=== PATIENT | male | born 1940 | race Caucasian/White ===

== ENCOUNTER 2019-02-24 12:05 | Emergency (ER) | payer MEDICARE, BC ==
[2019-02-24] MEDS ORDERED: Nitroglycerin 0.4 MG Tab.SL SL PRN (12:15)
[2019-02-24] MEDS ORDERED: Aspirin 81 MG Tab.Chew PO ONE (12:15)
[2019-02-24] MEDS ORDERED: Sodium Chloride 0.9% 10 ML Syringe FLUSH PRN (12:15)
[2019-02-24 13:12] LABS: ANION GAP 11.9; CHLORIDE,CL 101 mmol/L (101-111); SODIUM,NA 138 mmol/L (135-145)
[2019-02-24 13:28] VITALS: BP 126/61; PULSE 72
--- NOTE | 2019-02-24 13:45 | EDM.PDOC ---
Scribed by Neida Patricia 02/24/19 [id number] for Kylah Stephen MD ED HPI GENERAL MEDICAL PROBLEM - General Chief Complaint: Chest Pain Stated Complaint: PAIN IN THE CHEST Time Seen by Provider: 02/24/19 12:15 Source of Information: Reports: Patient, RN, RN Notes Reviewed History Limitations: Reports: Respiratory Distress - History of Present Illness INITIAL COMMENTS - FREE TEXT/NARRATIVE: Patient presents to ER by POV with c/o recurring chest pain that is progressively worsening for 1 to 2 weeks. Pt initially experienced chest pain with intense exertion. Over the past several days he has began to have pain with minimal activity such as walking less than 75 feet. Patient reports the chest pain is located midsternal, and radiates to the left arm. He admits to shortness of breath. Denies nausea, abdominal pain, increasing edema, palpitations, orthopnea, or syncope. The pt has been taking Nitroglycerin for the chest pain, and does have relief after the second dose. Pt has known CAD with stents in 2018. 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: Aspirin, Nitroglycerin - Related Data Allergies Allergy/AdvReac Type Severity Reaction Status Date / Time piperacillin sodium Allergy Severe Hypotension Verified 03/19/15 10:43 [From Zosyn] tazobactam sodium Allergy Severe Hypotension Verified 03/19/15 10:43 [From Zosyn] atorvastatin [From Lipitor] Allergy Muscle Verified 02/21/18 13:14 Aches Home Meds: Home Meds Aspirin [Adult Low Dose Aspirin EC] 81 mg PO DAILY 02/21/18 [History] Ezetimibe [Zetia] 10 mg PO DAILY 02/21/18 [History] Lisinopril/Hydrochlorothiazide [Lisinopril-HCTZ 10-12.5 MG] 10 - 12.5 mg PO BID 02/21/18 [History] Multivitamin-Min/Iron/FA/Vit K [Multi-Day Plus Minerals Tablet] 1 tab PO DAILY 02/21/18 [History] Ubidecarenone [Co Q-10] 10 mg PO DAILY 02/21/18 [History] Clopidogrel Bisulfate [Clopidogrel] 75 mg PO DAILY 04/06/18 [History] Nitroglycerin 0.4 mg SL ASDIRECTED PRN 04/06/18 [History] Pantoprazole Sodium 20 mg PO DAILY 04/06/18 [History] Simvastatin 20 mg PO DAILY 02/24/19 [History] Past Medical History HEENT History: Reports: Cataract Cardiovascular History: Reports: CAD, High Cholesterol, Hypertension, PTCA, Stents Other Cardiovascular History: CVA 2012 Genitourinary History: Reports: Prostate Disorder, Other (See Below) Other Genitourinary History: hx prostate cancer Musculoskeletal History: Reports: Osteoarthritis Other Musculoskeletal History: Hx of fracture to Rt ankle years ago. Neurological History: Reports: CVA Other Neuro History: CVA 12/14/12 Oncologic (Cancer) History: Reports: Prostate, Other (See Below) Other Oncologic History: Basal cell carcinoma and prostate cancer histories. Recovered from both. Dermatologic History: Reports: Other (See Below) Other Dermatologic History: hx basal cell carcinoma - Infectious Disease History Infectious Disease History: Reports: Chicken Pox, Measles - Past Surgical History HEENT Surgical History: Reports: Cataract Surgery Neurological Surgical History: Reports: None Musculoskeletal Surgical History: Reports: Knee Replacement, Other (See Below) Oncologic Surgical History: Reports: Other (See Below) Dermatological Surgical History: Reports: Skin Biopsy Social & Family History - Family History Cardiac: Reports: [place] Other Cardiac Family History: son at 49 from [place] Oncologic: Reports: Colon Other Oncologic Family History: mother of colon cancer - Living Situation & Occupation Living situation: Reports: , with Spouse Occupation: Retired ED ROS GENERAL - Review of Systems Review Of Systems: Comprehensive ROS is negative, except as noted in HPI. ED EXAM, GENERAL - Physical Exam Exam: See Below Exam Limited By: No Limitations General Appearance: Alert, WD/WN, No Apparent Distress, Obese Eye Exam: Bilateral Eye: Normal Inspection Nose: Normal Inspection, No Blood Throat/Mouth: Normal Inspection, Normal Lips, Normal Voice, No Airway Compromise Head: Atraumatic, Normocephalic Neck: Normal Inspection, Supple, Non-Tender, Full Range of Motion Respiratory/Chest: No Respiratory Distress, Lungs Clear, Normal Breath Sounds, No Accessory Muscle Use, Chest Non-Tender Cardiovascular: Normal Peripheral Pulses, Regular Rate, Rhythm, Other (+1 edema to knees B/L, chronic/stable per pt) GI/Abdominal: Normal Bowel Sounds, Soft, Non-Tender, No Distention. No: Guarding, Rigid, Rebound Back Exam: Normal Inspection Extremities: Normal Inspection, Normal Range of Motion, Non-Tender, Normal Capillary Refill, Pedal Edema Neurological: Alert, Oriented, CN II-XII Intact, Normal Cognition, No Motor/ Sensory Deficits Psychiatric: Normal Affect, Normal Mood Skin Exam: Warm, Dry, Intact, Normal Color, No Rash EKG INTERPRETATION EKG Date: 02/24/19 Time: 12:17 Rhythm: Other (sinus rhythm) Rate (Beats/Min): 65 [place]: Normal P-Wave: Present QRS: Normal ST-T: Normal QT: Normal Comparison: NA - No Prior EKG Course - Vital Signs Last Recorded V/S: Last Vital Signs Temp 97.4 F 02/24/19 12:19 Pulse 72 02/24/19 13:27 Resp 12 02/24/19 13:27 BP 126/61 02/24/19 13:27 Pulse Ox 94 L 02/24/19 13:27 - Orders/Labs/Meds Orders: Active Orders 24 hr Category Date Time Status EKG 12 Lead [EKG Documentation Completion] [RC] STAT Care 02/24/19 12:15 Active Peripheral IV Care [RC] . DIRECTED Care 02/24/19 12:15 Active Nitroglycerin [Nitrostat] Med 02/24/19 12:15 Active 0.4 mg SL Q5M PRN Sodium Chloride 0.9% [Saline Flush] Med 02/24/19 12:15 Active 10 ml FLUSH ASDIRECTED PRN Peripheral IV Insertion Adult [OM.PC] Stat Oth 02/24/19 12:15 Ordered Medication Orders Nitroglycerin (Nitrostat) 0.4 mg SL Q5M PRN PRN Reason: Chest Pain Sodium Chloride (Saline Flush) 10 ml FLUSH ASDIRECTED PRN PRN Reason: Keep Vein Open Last Admin: 02/24/19 12:27 Dose: 10 ml Labs: Laboratory Tests 02/24/19 02/24/19 02/24/19 Range/Units 12:23 12:23 12:23 WBC 7.1 (5.0-10.0) 10^3/uL RBC 4.98 (4.6-6.2) 10^6/uL Hgb 14.9 (14.0-18.0) g/dL Hct 44.1 (40.0-54.0) % MCV 88.6 (80-100) fL MCH 29.9 (27.0-34.0) pg MCHC 33.8 (33.0-35.0) g/dL Plt Count 211 (150-450) 10^3/uL Neut % (Auto) 65.5 (42.2-75.2) % Lymph % (Auto) 18.8 L (20.5-50.1) % Terrell % (Auto) 11.9 H (2-8) % Eos % (Auto) 2.8 (1.0-3.0) % Baso % (Auto) 1.0 (0.0-1.0) % PT 9.9 (9.0-12.0) SEC INR 1.0 (0.9-1.2) APTT 24.5 (22.0-34.0) SEC Sodium 138 (135-145) mmol/L Potassium 3.9 (3.6-5.0) mmol/L Chloride 101 (101-111) mmol/L Carbon Dioxide 29.0 (21.0-31.0) mmol/L Anion Gap 11.9 BUN 16 (7-18) mg/dL Creatinine 1.0 (0.6-1.3) mg/dL Est Cr Clr Drug Dosing 67.90 mL/min Estimated GFR (MDRD) > 60 BUN/Creatinine Ratio 16.00 Glucose 90 (74-105) mg/dL Calcium 8.8 (8.4-10.2) mg/dl Total Bilirubin 0.9 (0.2-1.0) mg/dL AST 18 (10-42) IU/L ALT 21 (10-60) IU/L Alkaline Phosphatase 61 (42-121) IU/L Troponin I < 0.02 (0.00-0.02) ng/ml B-Natriuretic Peptide 22 (0-100) pg/ml Total Protein 6.5 L (6.7-8.2) g/dl Albumin 3.8 (3.2-5.5) g/dl Globulin 2.7 Albumin/Globulin Ratio 1.41 Lipase 25 (22-51) U/L Meds: Medications Generic Name Dose Route Start Last Admin Trade Name Freq PRN Reason Stop Dose Admin Nitroglycerin 0.4 mg 02/24/19 12:15 Nitrostat SL Q5M PRN Chest Pain Sodium Chloride 10 ml 02/24/19 12:15 02/24/19 12:27 Saline Flush FLUSH 10 ml ASDIRECTED PRN Administration Keep Vein Open Discontinued Medications Generic Name Dose Route Start Last Admin Trade Name Freq PRN Reason Stop Dose Admin Aspirin 324 mg 02/24/19 12:15 02/24/19 12:27 Aspirin PO 02/24/19 12:16 324 mg ONETIME ONE Administration - Radiology Interpretation Free Text/Narrative:: [facility] Final Radiology Report Call: [phone] assistance Online chat: [email or web address] Name: PHILIP WILKINSON Age: 78Years M Date: 02/24/2019 SSN: -- : [id number] Study: XR CHEST 1 VIEW FRONTAL Requesting Physician: KYLAH STEPHEN Images: 1 Addl Studies: Provided Clinical History: Contrast: Contrast Medium: Contrast Amount: Contrast Method: CONFIDENTIALITY STATEMENT This report is intended only for use by the referring physician, and only in accordance with law. If you received this in error, call [phone]. Page 1 of 1 PROCEDURE INFORMATION: Exam: XR Chest, 1 View Exam date and time: 02/24/2019 12:29 PM Age: 78 years old Clinical history: Chest pain; Type not specified TECHNIQUE: Imaging protocol: XR of the chest Views: 1 view. COMPARISON: CR Chest 1V Frontal 03/18/2015 8:29 PM FINDINGS: Lungs: There is no focal pulmonary consolidation. Pleural space: There are no pleural effusions present. There is no evidence of pneumothorax. Heart/Mediastinum: The cardiac silhouette is within normal limits. Bones/joints: The visualized bones demonstrate no acute abnormalities. IMPRESSION: No acute cardiopulmonary disease. Thank you for allowing us to participate in the care of your patient. Dictated and Authenticated by: Bao Will MD 02/24/2019 1:21 PM Central Time ([place] & [place]) Departure - Departure Time of Disposition: 13:33 Disposition: DC/Tfer to Acute Hospital 02 Reason for Transfer *Q: Primary PCI Indicated Condition: Fair, Undetermined Clinical Impression: Unstable angina, History of coronary artery disease Forms: ED Department Discharge, Interfacility Transfer EMTALA - My Orders Last 24 Hours: My Active Orders 02/24/19 12:15 EKG 12 Lead [EKG Documentation Completion] [RC] STAT Peripheral IV Care [RC] . DIRECTED Nitroglycerin [Nitrostat] 0.4 mg SL Q5M PRN Sodium Chloride 0.9% [Saline Flush] 10 ml FLUSH ASDIRECTED PRN Peripheral IV Insertion Adult [OM.PC] Stat - Assessment/Plan Last 24 Hours: My Active Orders 02/24/19 12:15 EKG 12 Lead [EKG Documentation Completion] [RC] STAT Peripheral IV Care [RC] . DIRECTED Nitroglycerin [Nitrostat] 0.4 mg SL Q5M PRN Sodium Chloride 0.9% [Saline Flush] 10 ml FLUSH ASDIRECTED PRN Peripheral IV Insertion Adult [OM.PC] Stat I have read and agree with the documentation that has been completed regarding this visit. By signing this record, I attest that the documentation was completed in my physical presence and is an accurate record of the encounter.
== END 2019-02-24 14:15 ==
LOC: DL.ED 12:05
DX: I20.0 Unstable angina (principal); I10 Essential (primary) hypertension; E78.00 Pure hypercholesterolemia, unspecified; Z86.73 Personal history of transient ischemic attack (TIA), and cerebral infarction without residual deficits; Z95.5 Presence of coronary angioplasty implant and graft; Z88.1 Allergy status to other antibiotic agents; Z88.8 Allergy status to other drugs, medicaments and biological substances; Z79.82 Long term (current) use of aspirin; Z79.899 Other long term (current) drug therapy; Z79.02 Long term (current) use of antithrombotics/antiplatelets; Z85.46 Personal history of malignant neoplasm of prostate
CPT/HCPCS: 36415; 71045; 80053; 83690; 83880; 84484; 85025; 85610; 85730; 93005; 99285; A9270; 93010; 99284

== ENCOUNTER 2020-09-23 10:04 | Emergency (ER) | payer MEDICARE, BC ==
[2020-09-23] MEDS ORDERED: diphenhydrAMINE 50 MG/ML SDV IVPUSH ONE (10:08)
[2020-09-23] MEDS ORDERED: methylPREDNISolone Sodium Succinate 125 MG/2 ML SDV IVPUSH ONE (10:08)
[2020-09-23] MEDS ORDERED: Sodium Chloride 0.9% 1,000 ML IV ONE (10:08)
[2020-09-23] MEDS ORDERED: Famotidine 20 MG/2 ML SDV IVPUSH ONE (10:09)
--- NOTE | 2020-09-23 10:11 | EDM.PDOC ---
ED HPI GENERAL MEDICAL PROBLEM - General Stated Complaint: CT SCAN ALLERGIC REACTION Time Seen by Provider: 09/23/20 10:09 Source of Information: Reports: Patient, RN, RN Notes Reviewed, Other (educational advisor) History Limitations: Reports: No Limitations - History of Present Illness INITIAL COMMENTS - FREE TEXT/NARRATIVE: Dean is a 79 y/o male who presents to the ED following a CT with contrast at this facility with complaints of hives and pruritus. The patient received IV contrast approximately 15 minutes ago and began to experience itching to his bilateral hands and forearms. He states he received CT contrast in the past with no similar reaction. He denies palpitations, nausea, vomiting, shortness of breath, throat tightness, tongue swelling, or facial swelling. The patient was given no medications in radiology. - Related Data Allergies Allergy/AdvReac Type Severity Reaction Status Date / Time piperacillin sodium Allergy Severe Hypotension Verified 09/23/20 10:29 [From Zosyn] tazobactam sodium Allergy Severe Hypotension Verified 09/23/20 10:29 [From Zosyn] atorvastatin [From Lipitor] Allergy Muscle Verified 09/23/20 10:29 Aches iopamidol [From Isovue-M] Allergy Rash Verified 09/23/20 11:20 Contrast dye Allergy Hives Uncoded 09/23/20 11:58 Home Meds: Home Meds Aspirin [Adult Low Dose Aspirin EC] 81 mg PO DAILY 02/21/18 [History] Ezetimibe [Zetia] 10 mg PO DAILY 02/21/18 [History] Lisinopril/Hydrochlorothiazide [Lisinopril-HCTZ 10-12.5 MG] 10 - 12.5 mg PO BID 02/21/18 [History] Multivitamin-Min/Iron/FA/Vit K [Multi-Day Plus Minerals Tablet] 1 tab PO DAILY 02/21/18 [History] Ubidecarenone [Co Q-10] 200 mg PO DAILY 02/21/18 [History] Clopidogrel Bisulfate [Clopidogrel] 75 mg PO DAILY 04/06/18 [History] Nitroglycerin 0.4 mg SL ASDIRECTED PRN 04/06/18 [History] Pantoprazole Sodium 20 mg PO DAILY 04/06/18 [History] Simvastatin 20 mg PO DAILY 02/24/19 [History] Metoprolol Tartrate 25 mg PO BID 03/23/19 [History] Alirocumab [Praluent Pen] 75 mg SQ .[id number] 09/23/20 [History] Cholecalciferol (Vitamin D3) [Vitamin D3] 1,000 unit PO DAILY 09/23/20 [History] Past Medical History HEENT History: Reports: Cataract Cardiovascular History: Reports: CAD, High Cholesterol, Hypertension, PTCA, Stents Other Cardiovascular History: CVA 2012 Genitourinary History: Reports: Prostate Disorder, Other (See Below) Other Genitourinary History: hx prostate cancer Musculoskeletal History: Reports: Osteoarthritis Other Musculoskeletal History: Hx of fracture to Rt ankle years ago. Neurological History: Reports: CVA Other Neuro History: CVA 12/14/12 Oncologic (Cancer) History: Reports: Prostate, Other (See Below) Other Oncologic History: Basal cell carcinoma and prostate cancer histories. Recovered from both. Dermatologic History: Reports: Other (See Below) Other Dermatologic History: hx basal cell carcinoma - Infectious Disease History Infectious Disease History: Reports: C-Difficile, Chicken Pox, Measles - Past Surgical History HEENT Surgical History: Reports: Cataract Surgery GI Surgical History: Reports: Colonoscopy Neurological Surgical History: Reports: None Musculoskeletal Surgical History: Reports: Knee Replacement, Other (See Below) Oncologic Surgical History: Reports: Other (See Below) Dermatological Surgical History: Reports: Skin Biopsy Social & Family History - Family History Cardiac: Reports: [place] Other Cardiac Family History: son at 49 from [place] Oncologic: Reports: Colon Other Oncologic Family History: mother of colon cancer - Living Situation & Occupation Living situation: Reports: , with Spouse Occupation: Retired ED ROS ALLERGIC REACTION - Review of Systems Review Of Systems: Comprehensive ROS is negative, except as noted in HPI. ED EXAM GENERAL NO PERIP PULSE - Physical Exam Exam: See Below Exam Limited By: No Limitations General Appearance: Alert, No Apparent Distress Eye Exam: Bilateral Eye: EOMI, Normal Inspection, PERRL (3mm) Ears: Normal External Exam, Normal Canal, Hearing Grossly Normal, Normal TMs Nose: Normal Inspection, Normal Mucosa, No Blood Throat/Mouth: Normal Inspection, Normal Lips, Normal Teeth, Normal Gums, Normal Oropharynx, Normal Voice, No Airway Compromise, Other (No swelling to lips, tongue, throat, or face) Head: Atraumatic, Normocephalic. No: Facial Swelling Neck: Normal Inspection, Supple, Non-Tender, Full Range of Motion. No: Lymphadenopathy (L), Lymphadenopathy (R) Respiratory/Chest: No Respiratory Distress, Lungs Clear, Normal Breath Sounds, No Accessory Muscle Use, Chest Non-Tender. No: Wheezing, Stridor, Splinting, Prolonged Expiration Cardiovascular: Normal Peripheral Pulses, Regular Rate, Rhythm, No Edema, No Gallop, No JVD, No Murmur, No Rub GI/Abdominal: Normal Bowel Sounds, Soft, Non-Tender, No Distention, No Abnormal Bruit, No Mass (Male) Exam: Deferred Rectal (Males) Exam: Deferred Back Exam: Normal Inspection, Full Range of Motion Extremities: Normal Inspection, Normal Range of Motion, Non-Tender, No Pedal Edema, Normal Capillary Refill Neurological: Alert, Oriented, CN II-XII Intact, Normal Cognition, Normal Gait, No Motor/Sensory Deficits Psychiatric: Normal Affect, Normal Mood Skin Exam: Warm, Dry, Intact, Normal Color, No Rash. No: Cyanosis, Erythema, Jaundice, Mottled, Pallor, Petechiae Lymphatic: No Adenopathy Course - Vital Signs Last Recorded V/S: Last Vital Signs Temp 98.0 F 09/23/20 10:25 Pulse 60 09/23/20 10:25 Resp 18 09/23/20 10:25 BP 149/60 H 09/23/20 10:25 Pulse Ox 96 09/23/20 10:25 - Orders/Labs/Meds Meds: Medications Discontinued Medications Generic Name Dose Route Start Last Admin Trade Name Freq PRN Reason Stop Dose Admin Diphenhydramine HCl 50 mg 09/23/20 10:08 09/23/20 10:34 Diphenhydramine 50 Mg/Ml Sdv IVPUSH 09/23/20 10:09 50 mg ONETIME ONE Administration Famotidine 20 mg 09/23/20 10:09 09/23/20 10:34 Famotidine 20 Mg/2 Ml Sdv IVPUSH 09/23/20 10:10 20 mg ONETIME ONE Administration Sodium Chloride 1,000 mls @ 999 mls/hr 09/23/20 10:08 09/23/20 10:34 Normal Saline IV 09/23/20 11:08 999 mls/hr .BOLUS ONE Administration Methylprednisolone Sodium Succinate 125 mg 09/23/20 10:08 07/06/21 10:34 Methylprednisolone Sodium Succinate 125 Mg/2 Ml Sdv IVPUSH 09/23/20 10:09 125 mg ONETIME ONE Administration - Re-Assessments/Exams Free Text/Narrative Re-Assessment/Exam: 09/23/20 NS 1L bolus administered. Solu-Medrol 125mg IV, Benadryl 50mg IV, Pepcid 20mg IV administered. Patient verbalized improvement in pruritus following medication administration. Findings of examination reviewed with patient and . Discussed supportive cares for allergic reaction. Red flag signs and symptoms which would warrant reevaluation reviewed. Patient and verbalized understanding and agreement with the plan of care. Departure - Departure Time of Disposition: 11:47 Disposition: Home, Self-Care 01 Condition: Good Clinical Impression: Allergy to intravenous contrast media Allergic reaction Qualifiers: Encounter type: initial encounter Qualified Code(s): T78.40XA - Allergy, unspecified, initial encounter - Discharge Information *PRESCRIPTION DRUG MONITORING PROGRAM REVIEWED*: Not Applicable *COPY OF PRESCRIPTION DRUG MONITORING REPORT IN PATIENT JACIEL: Not Applicable Instructions: Allergies, Adult, [id number] Forms: ED Department Discharge Additional Instructions: 1.) You may take an additional dose of Benadryl 50mg tonight, should itching return. 2.) Drink plenty of water to stay hydrated. 3.) Return to the emergency department with any return of symptoms that do not improve with medication, shortness of breath, tongue/lips/face swelling, or throat tightness. Sepsis Event Note (ED) - Focused Exam Vital Signs: Vital Signs Temp Pulse Resp BP Pulse Ox 09/23/20 10:25 98.0 F 60 18 149/60 H 96
[2020-09-23 10:28] VITALS: BP 149/60; PULSE 60
== END 2020-09-23 12:00 | disposition home or self-care (01) ==
LOC: DL.ED 10:04
DX: L50.9 Urticaria, unspecified (principal); L29.9 Pruritus, unspecified; T50.8X5A Adverse effect of diagnostic agents, initial encounter; I25.10 Atherosclerotic heart disease of native coronary artery without angina pectoris; E78.00 Pure hypercholesterolemia, unspecified; I10 Essential (primary) hypertension; M19.90 Unspecified osteoarthritis, unspecified site; Z79.82 Long term (current) use of aspirin; Z79.02 Long term (current) use of antithrombotics/antiplatelets; Z79.899 Other long term (current) drug therapy; Z88.0 Allergy status to penicillin; Z88.8 Allergy status to other drugs, medicaments and biological substances; Z91.041 Radiographic dye allergy status
CPT/HCPCS: 74177; 96374; 96375; 99283; J1200; J2930; J3490; J7030; Q9967

== ENCOUNTER 2021-06-29 12:05 | Emergency (ER) | payer MEDICARE, BC ==
[2021-06-29 12:12] VITALS: BP 167/81; PULSE 55
[2021-06-29] MEDS ORDERED: Heparin Sodium 5,000 Units/ML Vial IVPUSH ONE (12:24)
[2021-06-29] MEDS ORDERED: Nitroglycerin/D5W 25 MG/250 ML BOTTLE IV SCH (12:30)
[2021-06-29] MEDS ORDERED: Heparin Sodium/0.45% NaCl 25,000 UNITS/500 ML BAG IV SCH (12:30)
[2021-06-29 12:52] LABS: ANION GAP 14.4 mEq/L (7-13); CHLORIDE,CL 101 mmol/L (98-107); SODIUM,NA 140 mmol/L (136-145)
[2021-06-29 12:53] LABS: PTT,PARTIAL THROMBOPLSTIN TIME 25.3 SEC (22.0-34.0)
== END 2021-06-29 14:00 ==
LOC: DL.ED 12:05
DX: I20.0 Unstable angina (principal); Z20.822 Contact with and (suspected) exposure to COVID-19; Z88.1 Allergy status to other antibiotic agents; Z91.041 Radiographic dye allergy status; Z88.8 Allergy status to other drugs, medicaments and biological substances
CPT/HCPCS: 36415; 71045; 80053; 82150; 84484; 85025; 85379; 85610; 85730; 93005; 96365; 96368; 96376; 99285; J1644; J3490; U0002

== ENCOUNTER 2023-10-18 16:34 | Emergency (ER) | payer MEDICARE, BC ==
[2023-10-18] MEDS: Bacitracin/Neomycin/Polymyxin B Oint 28.4 GM Tube TOP ONE (17:34)
[2023-10-18] MEDS: Bacitracin/Neomycin/Polymyxin B Oint 28.4 GM Tube ONE (17:35)
[2023-10-18] MEDS: Bacitracin Oint 1 GM U/D Packet TOP ONE (17:43)
[2023-10-18] MEDS: Bacitracin Oint 1 GM U/D Packet ONE (17:44)
[2023-10-18 18:25] VITALS: BP 138/70; PULSE 70
== END 2023-10-18 18:23 | disposition home or self-care (01) ==
LOC: DL.ED 16:34
DX: S51.012A Laceration without foreign body of left elbow, initial encounter (principal); S40.812A Abrasion of left upper arm, initial encounter; I25.10 Atherosclerotic heart disease of native coronary artery without angina pectoris; E78.00 Pure hypercholesterolemia, unspecified; I10 Essential (primary) hypertension; M19.90 Unspecified osteoarthritis, unspecified site; Z86.16 Personal history of COVID-19; Z79.82 Long term (current) use of aspirin; Z79.899 Other long term (current) drug therapy; Z88.8 Allergy status to other drugs, medicaments and biological substances; Z91.041 Radiographic dye allergy status; W01.0XXA Fall on same level from slipping, tripping and stumbling without subsequent striking against object, initial encounter; Y92.093 Driveway of other non-institutional residence as the place of occurrence of the external cause
CPT/HCPCS: 99283; A9270